=== PATIENT | female | born 2005 | race Caucasian/White ===

== ENCOUNTER 2025-05-24 13:43 | Emergency (ER) | payer SELFPAY ==
--- NOTE | ~2025-05-24 | XR_ITS ---
CLINICAL HISTORY: chest pain 2 view chest x-ray Comparison: None provided Findings: The lungs are clear. Heart size is normal. No acute fracture. IMPRESSION: 1. No acute findings. This document has been electronically signed by: Carroll Anguiano MD on 05/24/2025 15:29:13
[2025-05-24 13:53] VITALS: BP 138/64; PULSE 116; RESP 16; TEMP 37.8; O2SAT 96; BMI 21.9
--- NOTE | 2025-05-24 13:53 | ED.GENADULT ---
HPI - General Adult General Chief complaint: General Medical Stated complaint: CP,headache, vomitting Time Seen by Provider: 05/24/25 17:05 Source: patient Mode of arrival: ambulatory Limitations: no limitations History of Present Illness HPI narrative: 19-year-old female awoke with chest pain, headache and intermittent episodes opening. Thinks this could be related to anxiety. She denies any fevers or chills. Unknown if any sick contacts. She has been eating and drinking normally. Patient is otherwise feeling well. Related Data Previous Rx's ?Medication ?Instructions ?Recorded ibuprofen 600 mg tablet 600 mg PO Q6H PRN fever or pain 05/24/25 #20 tabs Allergies Allergy/AdvReac Type Severity Reaction Status Date / Time No Known Allergies Allergy Verified 05/24/25 13:57 Review of Systems Review of Systems: Yes all other systems are reviewed and are negative Eyes: Eyes: Denies diplopia Respiratory: Respiratory: Denies cough Gastrointestinal: Gastrointestinal: Denies abdominal pain PMFSH Social History Social History Advance Directives: No Advance Directives Information Provided: No Physical Exam ED Vital Signs: Vital Signs - 24 hr 05/24/25 13:53 05/24/25 17:58 Temperature 100.0 F 100.0 F Pulse Rate 116 H 116 H Respiratory Rate 16 16 Blood Pressure 138/64 138/64 Pulse Oximetry 96 96 Oxygen Delivery Method Room Air Room Air BMI result Body Mass Index 21.9 Const General: alert, awake and Physically active Resp Effort & Inspection: normal respiratory effort Auscultation: clear to auscultation bilaterally Cardio Rate: regular rate Rhythm: regular rhythm Skin General skin exam: no rashes or lesions noted Course Course Course Narrative: Medical screening exam performed. Please refer to detailed history, exam, evaluation, and management by primary provider. Cough, chest pain with coughing, nausea or vomiting. Fever. Medical Decision Making Medical Decision Making MDM Narrative: 19-year-old female, positive COVID test. Chest x-ray without any pneumonia. Reviewed all discharge instructions and results. Patient expresses understanding has no further questions at this time. Differential Diagnosis Differential Diagnoses: The differential diagnosis associated with the presentation includes Pneumonia Viral syndrome COVID-19 Allergic reaction Lab Data Labs: Lab Results 05/24/25 Range/Units 14:12 COVID-19 (FILOMENA) Positive A (Negative) COVID-19 Clin Com See Note Influenza Type A (ROBYN) Negative (Negative) Influenza Type B (ROBYN) Negative (Negative) Influenza A & B Note See Note Discharge Plan Discharge Clinical Impression: COVID Patient Disposition: Home, Self-Care Instructions: COVID-19 (Coronavirus Disease 2019) (ED) Additional Instructions: Your viral test today was positive for COVID. Wear a mask at all times and wash your hands regularly. Your chest x-ray today was okay. Tylenol or ibuprofen for pain. Follow-up with your primary care provider. Call this week to schedule a follow-up appointment. Return to the emergency department if you have any worsening of symptoms, or any concerns. Get well soon! Prescriptions: New ibuprofen 600 mg tablet 600 mg PO Q6H PRN (Reason: fever or pain) Qty: 20 0RF Stand Alone Forms: Work/School Release Interventions: ED Discharge Assessment Last Done: 05/24/25 17:58 Discharge Date/Time: 05/24/25 18:00 Print Language: Argentine
[2025-05-24 14:43] LABS: COVID-19 Test Positive (Negative); IDNOW Serial# 55D5AD1C
[2025-05-24 15:02] LABS: IDNOW Serial# 58CA691E; Influenza B2 Negative (Negative)
[2025-05-24 17:58] VITALS: BP 138/64; PULSE 116; RESP 16; TEMP 37.8; O2SAT 96
== END 2025-05-24 18:00 | disposition home or self-care (01) ==
PROVIDERS: Physician Assistant; Emergency Provider Emergency Medicine Emergency Medical Services
DX: R07.9 Chest pain, unspecified (principal); U07.1 COVID-19; R51.9 Headache, unspecified; R11.10 Vomiting, unspecified
CPT/HCPCS: 71046; 87502; 87635; 99282; 99283

== ENCOUNTER → 2025-05-24 13:54 | Outpatient (BNV) | payer SELFPAY | PROVIDERS: Visit Provider Radiology Diagnostic Radiology | DX: R07.9 Chest pain, unspecified (principal) | CPT/HCPCS: 71046 ==